=== PATIENT | male | born 1980 | race Caucasian/White ===

== ENCOUNTER 2016-06-27 19:52 | Observation (INO) | payer BC, MEDICAID ==
[~2016-06-27] VITALS: Ht 180.3 cm; Wt 100.9 kg
[~2016-06-27 19:52] MED LIST: LORTAB 5/500 501 TAB PO; LORTAB 7.5/5001 TAB PO; PRILOSEC 20MG20 MG PO; REGLAN 10MG10 MG/TAB PO; XANAX0.5 MG PO
[2016-06-27] MEDS ORDERED: ZITHROMAX Z PA250 MG PO (19:58)
[2016-06-27] MEDS ORDERED: OXY IR5 MG PO (20:27)
[2016-06-27 20:48] LABS: BASO % 0.4 % (0.0-2.0); EOS # 0.1 (0.0-0.7); EOS % 1.3 % (0-4.0); GRAN # 7.4 (1.4-6.5); GRAN % 75.8 % (42.2-75.2); HEMATOCRIT 43.6 % (42.0-52.0); LYMPH # 1.5 (1.2-3.4); LYMPH % 15.6 % (20.0-51.0); MEAN CELL VOLUME 91 fl (80.0-100.0); MEAN CORPUSCULAR HEMOGLOBIN 31 pg (27.0-31.0); MEAN CORPUSCULAR HGB CONC 34 g/dl (33.0-37.0); MEAN PLATELET VOLUME 10.6 fl (7.4-10.4); MONO # 0.6 (0.1-0.6); MONO % 6.4 % (1.7-9.3); PLATELET COUNT 202 K/mm3 (130-400); REDCELL DISTRIBUTION WIDTH-CV 12.2 % (11.5-14.5); WHITE BLOOD COUNT 9.8 K/mm3 (4.8-10.8)
[2016-06-27 21:02] LABS: ADJUSTED CALCIUM 9.5 mg/dL (8.4-10.2); ALBUMIN 4.3 gm/dL (3.5-5.0); BILIRUBIN,TOTAL 0.7 mg/dL (0.0-1.0); C-REACTIVE PROTEIN 3.2 mg/dL (0.0-0.9); CALCIUM 9.7 mg/dL (8.4-10.2); CREATININE, serum 1.04 mg/dL (0.66-1.25); POTASSIUM 3.7 mmol/L (3.4-5.0); TOTAL PROTEIN 7.6 gm/dL (6.4-8.2)
[2016-06-27 22:32] LABS: PH 6 (5-8); SQUAMOUS EPITHELIAL None Seen /hpf; URINE APPEARANCE Clear; URINE BACTERIA None Seen /hpf; URINE BILIRUBIN Negative (NEGATIVE); URINE BLOOD 1+ (NEGATIVE); URINE COLOR Straw; URINE GLUCOSE Negative (NEGATIVE); URINE KETONE Trace (NEGATIVE); URINE RBC 0-2 /hpf; URINE UROBILINOGEN Negative (NEGATIVE); URINE WBC 0-2 /hpf
[2016-06-28] VITALS (11 sets, daily range): BP systolic 117–133; BP diastolic 60–78; PULSE 76–103; TEMP 97.8–98.2
[2016-06-28] MEDS ORDERED: NORCO 325 MG-51 TAB PO (00:06)
== END 2016-06-28 19:30 | disposition home or self-care (01) ==
LOC: COL.ER 19:52 → SURG 22:09
PROVIDERS: Nurse Practitioner
DX: K35.80 Unspecified acute appendicitis (principal)
CPT/HCPCS: G0378; J1170; J1200; J1885; J1956; J2250; J2270; J2405; J2704; J2765; J2930; J3010; J7030; J7120; Q9967

== ENCOUNTER → 2019-04-07 | Outpatient (CLI) | payer BC ==
[~2019-04-07] MED LIST changes: +NORCO 325 MG-51 TAB PO; +OXY IR5 MG PO; +ZITHROMAX Z PA250 MG PO
== END ==
LOC: COL.CARD 09:42
DX: R42 Dizziness and giddiness (principal); G43.009 Migraine without aura, not intractable, without status migrainosus

== ENCOUNTER → 2019-07-23 | Outpatient (CLI) | payer BC | LOC: COL.RAD 13:51 | DX: N50.812 Left testicular pain (principal) ==

== ENCOUNTER → 2019-11-18 | Outpatient (CLI) | payer BC | LOC: ZCOL.LAB 17:45 | DX: R05 Cough (principal); Z20.828 Contact with and (suspected) exposure to other viral communicable diseases ==

== ENCOUNTER 2020-06-18 10:45 | Emergency (ER) | payer BC ==
[~2020-06-18] VITALS: Ht 180.3 cm; Wt 100.5 kg
[2020-06-18 10:55] VITALS: TEMP 97.5
[2020-06-18] MEDS ORDERED: CRESTOR 10MG10 MG PO (11:09)
[2020-06-18] MEDS ORDERED: VITAMIN D250 MCG PO (11:10)
[2020-06-18 11:36] LABS: BASO % 0.4 % (0.0-2.0); EOS # 0.1 (0.0-0.7); EOS % 1.5 % (0-4.0); GRAN # 3.6 (1.4-6.5); GRAN % 68.6 % (42.2-75.2); HEMATOCRIT 45.2 % (42.0-52.0); HEMOGLOBIN 15.4 g/dl (13.5-18.0); LYMPH # 1.2 (1.2-3.4); LYMPH % 22.1 % (20.0-51.0); MEAN CELL VOLUME 90 fl (80.0-100.0); MEAN CORPUSCULAR HEMOGLOBIN 31 pg (27.0-31.0); MEAN CORPUSCULAR HGB CONC 34 g/dl (33.0-37.0); MONO # 0.4 (0.1-0.6); MONO % 7.2 % (1.7-9.3); PLATELET COUNT 208 K/mm3 (130-400); REDCELL DISTRIBUTION WIDTH-CV 12.4 % (11.5-14.5)
[2020-06-18 11:52] LABS: ALBUMIN 4.6 gm/dL (3.5-5.0); BILIRUBIN,TOTAL 0.7 mg/dL (0.0-1.0); CALCIUM 9.4 mg/dL (8.4-10.2); TOTAL PROTEIN 7.4 gm/dL (6.4-8.2)
[2020-06-18] MEDS ORDERED: MEDROL 4MG DOSPA4 MG PO (12:18)
[2020-06-18 12:24] VITALS: BP 131/90; PULSE 81
== END 2020-06-18 12:24 | disposition home or self-care (01) ==
LOC: COL.ER 10:45
PROVIDERS: Nurse Practitioner
DX: M79.605 Pain in left leg (principal); Z87.891 Personal history of nicotine dependence

== ENCOUNTER 2023-03-07 10:09 | Day surgery (SDC) | payer BC ==
[~2023-03-07] VITALS: Ht 180.3 cm; Wt 105.4 kg
[~2023-03-07 10:09] MED LIST changes: +CRESTOR 10MG10 MG PO; +MEDROL 4MG DOSPA4 MG PO; +VITAMIN D250 MCG PO
[2023-03-07] MEDS ORDERED: MAXITROL OPHTH D5 ML (11:41)
[2023-03-07] MEDS ORDERED: PRIL40 PO (11:41)
[2023-03-07] MEDS ORDERED: XANAX 1MG1 MG PO (11:42)
[2023-03-07 11:54] VITALS: BP 125/87; PULSE 56; TEMP 98.1
--- NOTE | 2023-03-07 11:57 | NUR ---
1041 PT AMBULATORY TO [facility] WITH A STEADY GAIT, BREATHING EVEN AND UNLABORED. PT IS ALERT AND ORIENTED ACCOMPANIED BY HIS . CONSENTS REVIEWED AND SIGNED BY PT. IV ESTABLISHED. LR INFUSING VIA GRAVITY AT [facility]. CALL LIGHT IN REACH. WARM BLANKET PROVIDED.
[2023-03-07 12:35] VITALS: BP 120/96; PULSE 57; TEMP 97.6
--- NOTE | 2023-03-07 12:35 | NUR ---
The patient arrived back to [facility] from the endoscopy suite at this time. The patient appears alert and oriented and ambulated from the cart to the recliner in his room with the stand by assistance of two nurses and appeared to tolerate the activity well. Post procedure vital signs were started at this time. The patient agrees to try some water and a muffin at this time. The patient's is at his bedside. Warm blanket provided. Call light is within reach. Denies any further needs at this time.
[2023-03-07 12:50] VITALS: BP 123/84; PULSE 56
--- NOTE | 2023-03-07 12:50 | NUR ---
The patient has finished his food and drink and appears to be tolerating the food and drink well. Vital signs appear stable. at bedside.
[2023-03-07 13:05] VITALS: BP 127/90; PULSE 62
--- NOTE | 2023-03-07 13:10 | NUR ---
Dr. Grimes has been in to speak with the patient and his regarding the findings of the procedure. Discharge instructions were reviewed with the patient and his at this time. They both verbalized undestanding and have no questions for the nurse at this time. The patient's IV to his right hand was removed and a pressure dressing was applied to the site. The nurse instructed the patient to get dressed and notify the staff when he is ready to be escorted out.
--- NOTE | 2023-03-07 13:20 | NUR ---
The patient was escorted out via wheelchair to a private vehicle by ARINA Awad. The patient's belongings and discharge paperwork were sent with him. The patient's , Yadira, is present to drive him home.
== END 2023-03-07 13:20 | disposition home or self-care (01) ==
LOC: SDCO 10:09
DX: K21.00 Gastro-esophageal reflux disease with esophagitis, without bleeding (principal); K44.9 Diaphragmatic hernia without obstruction or gangrene; G47.33 Obstructive sleep apnea (adult) (pediatric)
CPT/HCPCS: J2704